=== PATIENT | female | born 1940 | race Caucasian/White ===

== ENCOUNTER → 2019-01-10 | Outpatient (CLI) | payer MEDICARE ==
[~2019-01-10] MED LIST: ATROPINE SULFATE 1 MG/ML VIAL IV ONE
--- NOTE | 2019-01-10 13:10 | NUR ---
Review of orders, pt history, and IV status. Participating in Dobutamine stress test. Medications at bedside. Dr Jaramillo monitoring during procedure. Pt was monitored at all times during Dobutamine stress test on EKG , HR , and BP. Oxygen in use 3L/nc per pt use at home. Pt achieved target HR at 6 minutes and 20 seconds at which time Dobutamine DC'd. IV site remains patent and pt VS return to baseline after 10 minutes. Physician and nursing presence duration of stress test. No acute or gross changes observed. cgf
== END ==
LOC: RAD 09:25
PROVIDERS: ATTEND Internal Medicine Interventional Cardiology
DX: R07.89 Other chest pain (principal); R06.02 Shortness of breath; R06.00 Dyspnea, unspecified; I25.10 Atherosclerotic heart disease of native coronary artery without angina pectoris; I20.8 Other forms of angina pectoris; J44.9 Chronic obstructive pulmonary disease, unspecified
CPT/HCPCS: 78452; 93017; 93306; A9502; J1250; J0461